=== PATIENT | male | born 1960 ===

== ENCOUNTER → 2017-05-10 | Outpatient (CLI) | payer BC | END | disposition home or self-care (01) | LOC: C.LABSPEC 10:00 | PROVIDERS: ATTEND Dentist Oral and Maxillofacial Surgery | DX: J34.1 Cyst and mucocele of nose and nasal sinus (principal) ==

== ENCOUNTER → 2017-05-10 | Outpatient (CLI) | payer BC | END | disposition home or self-care (01) | LOC: C.PATHSPEC 16:26 | PROVIDERS: ATTEND Dentist Oral and Maxillofacial Surgery | DX: K09.0 Developmental odontogenic cysts (principal); J33.8 Other polyp of sinus ==